=== PATIENT | female | born 1990 | race African-American/Black ===

== ENCOUNTER 2018-05-30 22:30 | Emergency (ER) | payer SELFPAY ==
[~2018-05-30] VITALS: Ht 167.6 cm; Wt 104.0 kg
[2018-05-30] MEDS ORDERED: ACETAMINOPHEN WITH CODEINE 300/30MG TABLET PO ONE (23:00)
[2018-05-31 03:40] VITALS: BP 121/70
== END 2018-05-31 03:47 | disposition home or self-care (01) ==
LOC: ER 23:06
DX: S09.8XXA Other specified injuries of head, initial encounter (principal); F17.200 Nicotine dependence, unspecified, uncomplicated; V43.52XA Car driver injured in collision with other type car in traffic accident, initial encounter; Y93.89 Activity, other specified; Y92.488 Other paved roadways as the place of occurrence of the external cause
CPT/HCPCS: 70450; 70486; 71045; 73030; 81025; 99284